=== PATIENT | female | born 1945 | race Caucasian/White ===

== ENCOUNTER 2017-05-14 08:19 | Day surgery (SDC) | payer MEDICARE, OTHER ==
[~2017-05-14] VITALS: Ht 154.9 cm; Wt 70.2 kg
[~2017-05-14 08:19] MED LIST: BLOOD THINNER PO; HTN MED PO; OSTEOPOROSIS MED PO
[2017-05-14 09:25] VITALS: Ht 154.9 cm; Wt 70.2 kg
[2017-05-14] MEDS ORDERED: RAMI10CA48 PO (09:29)
[2017-05-14] MEDS ORDERED: [UNRECOGNIZED DRUG - OTHER] (09:29)
[2017-05-14] MEDS ORDERED: CHOL200073 PO (09:29)
[2017-05-14] MEDS ORDERED: [UNRECOGNIZED DRUG - OTHER] (09:29)
[2017-05-14] MEDS ORDERED: [UNRECOGNIZED DRUG - OTHER] PAL (09:29)
[2017-05-14 09:30] VITALS: BP 147/71; PULSE 75; RESP 49
[2017-05-14] MEDS ORDERED: PROPOFOL 40 ML ONE (09:33)
--- NOTE | 2017-05-14 10:11 | OPPN ---
Date/Time of Note Date/Time of Note DATE: 05/14/17 TIME: 09:41 Operative Report Preoperative Diagnosis Change in bowel habit History of colon polyp Postoperative Diagnosis Diverticulosis of the colon Internal hemorrhoids No colon neoplasm was identified Operation/Procedure Performed Colonoscopy Surgeon see signature line marketing assistant None Anesthesia: MAC Estimated blood loss: none Transfusion Required none Specimen None Grafts/Implants none Complications none STEPHANIE DE GUZMAN MD May 14, 2017 10:11
[2017-05-14 10:33] VITALS: BP 156/74
--- NOTE | 2017-05-15 07:12 | GILP ---
DATE OF PROCEDURE: NAME OF PROCEDURE: Colonoscopy. SURGEON: Stephanie Garces MD. PREOPERATIVE DIAGNOSES: 1. Change in bowel habit. 2. History of colon polyps. POSTOPERATIVE DIAGNOSES: 1. Colonoscopy all the way to the cecum. 2. Diverticulosis of the colon. 3. Internal hemorrhoids. 4. No colon neoplasm was identified. INDICATION FOR THE PROCEDURE: Ms. Radha Herndon is a 72-year-old female patient who noticed a change in the bowel habit. She had history of colon polyps. The patient was scheduled for colonoscopy fo r further evaluation. The procedure and possible complications were well explained to the patient and the family and conse nt was obtained. DESCRIPTION OF PROCEDURE: Under the influence of anesthesia, the colonoscope was carefully introduc ed in the rectum and under direct vision, it was advanced all the way to the cecum. FINDINGS: The patient had diverticulosis of the colon. She also had internal hemorrhoids. No colo n neoplasm was identified. The patient tolerated the procedure very well and there was no complication from the procedure. At the end of the procedure, she was awake with stable vital signs and she was discharged home to the [facility] of her family. IMPRESSION: Please see postoperative diagnoses. PLAN 1. High-fiber diet. 2. Because of the patient's age, she will not need another screening colonoscopy. Dictated By: STEPHANIE KC/ARUNA Conf#: [id number] DID#: [id number]
== END 2017-05-14 10:31 | disposition home or self-care (01) ==
LOC: GIL 08:19
PROVIDERS: ATTEND Internal Medicine Gastroenterology
DX: R19.4 Change in bowel habit (principal); K57.90 Diverticulosis of intestine, part unspecified, without perforation or abscess without bleeding; K64.8 Other hemorrhoids; I10 Essential (primary) hypertension